=== PATIENT | female | born 1995 ===

== ENCOUNTER → 2023-03-03 | Outpatient (CLI) | payer MEDICAID | END | disposition home or self-care (01) | LOC: LAB 09:40 | PROVIDERS: ATTEND Obstetrics & Gynecology | DX: O99.810 Abnormal glucose complicating pregnancy (principal); Z3A.00 Weeks of gestation of pregnancy not specified | CPT/HCPCS: 36415; 82951; 83036 ==

== ENCOUNTER 2023-04-20 14:03 | Inpatient (IN) | payer MEDICAID ==
[~2023-04-20] VITALS: Ht 162.6 cm; Wt 82.1 kg
[2023-04-20] MEDS ORDERED: DERMOPLAST 60ML BOTTLE TOP PRN (16:00)
[2023-04-20] MEDS ORDERED: PHISODERM TOP SOLN 240ML BTL TOP PRN (16:00)
[2023-04-20] MEDS ORDERED: PROMETHAZINE HCL 25 MG/ML 1ML IV PRN (16:00)
[2023-04-20] MEDS ORDERED: LIDOCAINE 2%HCL (LOCAL ANESTH.) INJ 20ML MDV IJ PRN (16:00)
[2023-04-20] MEDS ORDERED: WITCH HAZEL-GLYCERIN PAD TOP PRN (16:00)
[2023-04-20 16:34] LABS: Basophils # (auto) 0 10 ^3/uL (0-0.2); Basophils % (auto) 0.3 % (0.0-2.0); Eosinophils # (auto) 0 10 ^3/uL (0-0.8); Hematocrit 36.9 % (36.0-46.0); Hemoglobin 12.5 g/dL (12.2-16.2); Lymphocytes # (auto) 1.4 10 ^3/uL (0.4-5.4); Mean Corpuscular Hemoglobin 31.2 pg (28.0-32.0); Mean Corpuscular Hgb Conc. 33.9 g/dL (32.0-36.0); Mean Corpuscular Volume 92.1 fL (80.0-100.0); Monocytes # (auto) 0.5 10 ^3/uL (0-1.3); Monocytes % (auto) 5.6 % (0.0-12.0); Neutrophils # (auto) 7.5 10 ^3/uL (1.6-8.6); Neutrophils % (auto) 79.1 % (37.0-80.0); Red Cell Distribution Width 13.4 % (11.8-14.3); White Blood Cell 9.5 10^3/uL (4.4-10.8)
[2023-04-20] MEDS ORDERED: NALOXONE HCL 0.4 MG/ML VIAL IV ONE (16:45)
[2023-04-20] MEDS ORDERED: ROPIVACAINE HCL 200 ML EPI SCH (16:45)
[2023-04-20] MEDS ORDERED: LIDOCAINE HCL 2 %PF INJ 10ML AMP IJ ONE (16:45)
[2023-04-20] MEDS ORDERED: ePHEDrine SULFATE 50 MG/ML AMP IV ONE (16:45)
[2023-04-20] MEDS ORDERED: fentaNYL CITRATE 100 MCG/2 ML VL IV ONE (16:45)
[2023-04-20 16:46] LABS: Urine Bacteria NONE SEEN /hpf (None Seen); Urine Blood 2+ /uL (Negative); Urine Clarity Clear (Clear); Urine Color Yellow (Yellow); Urine Mucus FEW (None Seen); Urine Protein, UAD TRACE (Negative); Urine Specific Gravity 1.028 (1.001-1.035); Urine Urobilinogen Normal (Negative); Urine WBC 11 /hpf (0 - 5)
[2023-04-20 16:55] LABS: INR 0.93 (0.9-1.15); Partial Thromboplastin Time 31.5 SEC (24.5-34.5); Prothrombin Time 9.8 sec (9.3-11.8)
[2023-04-20] MEDS ORDERED: LACT. RINGERS/OXYTOCIN 20UNITS 1,000 ML IV SCH (17:00)
[2023-04-20] MEDS ORDERED: LACT. RINGERS/OXYTOCIN 20UNITS 500 ML IV ONE ×2 (17:00→17:30)
[2023-04-20] MEDS ORDERED: TERBUTALINE SULFATE 1 MG/ML 1ML VIAL SC PRN (17:00)
[2023-04-20 17:05] LABS: Albumin 4.1 g/dL (3.2-4.8); Alkaline Phosphatase 140 U/L (46-116); Anion Gap 7 (5-15); Aspartate Aminotransferase < 8 U/L (13-40); Calcium 8.8 mg/dL (8.7-10.4); Carbon Dioxide 22 mmol/L (20-30); Chloride 106 mmol/L (98-107); Glucose 90 mg/dL (74-106); Potassium 3.5 mmol/L (3.5-5.1); Sodium 135 mmol/L (136-145)
[2023-04-20 17:06] LABS: Bilirubin, Total 0.4 mg/dL (0.2-1.0)
[2023-04-20 17:14] LABS: Alanine Aminotransferase < 9 U/L (7-40); BUN/Creatinine Ratio 8.6 (10.0-20.0); Blood Urea Nitrogen < 5 mg/dL (9-23)
[2023-04-20 17:15] LABS: Amphetamine Screen, Urine Neg (NEGATIVE); Barbiturate Scree,Urine Neg (NEGATIVE); Benzodiazephine Screen, Urine Neg (NEGATIVE); Cocaine Screen, Urine Neg (NEGATIVE)
[2023-04-20] MEDS: LACTATED RINGER'S 1,000 ML IV SCH ×2 (17:15→19:19)
[2023-04-20 17:16] LABS: Cannabinoid Screen, Urine Neg (NEGATIVE); Opiate Scree,Urine Neg (NEGATIVE); Phencyclidine Screen, Urine Neg (NEGATIVE)
[2023-04-20] MEDS ORDERED: FAMOTIDINE (10MG/ML) 2ML VL IV PRN (17:45)
[2023-04-20] MEDS ORDERED: METHYLERGONOVINE MALEATE 0.2 MG/ML AMP IM ONE (21:29)
[2023-04-20] MEDS ORDERED: METHYLERGONOVINE MALEATE 0.2 MG/ML AMP IM PRN (22:00)
[2023-04-21] MEDS ORDERED: IBUPROFEN 600 MG TAB PO PRN (01:00)
[2023-04-21] MEDS ORDERED: ONDANSETRON ODT 4 MG TAB PO PRN (01:00)
[2023-04-21] MEDS ORDERED: ACETAMINOPHEN 325 MG TAB PO PRN (01:00)
[2023-04-21 02:57] VITALS: BP 100/55; PULSE 65; RESP 16; TEMP 97.8
[2023-04-21 06:07] LABS: RPR Non Reactive (Non Reactive)
[2023-04-21 07:00] VITALS: BP 96/57; PULSE 61; RESP 16; RESP 18; TEMP 97.5
[2023-04-21 11:02] VITALS: BP 102/61; PULSE 75; RESP 16; TEMP 98; O2SAT 98
[2023-04-21 15:00] VITALS: TEMP 98.4
[2023-04-21 18:47] VITALS: BP 110/67; PULSE 66; RESP 18; TEMP 98.1; O2SAT 98
[2023-04-21] MEDS ORDERED: MEASLES, MUMPS & RUBELLA VAC(MMRII) 0.5ML SC ONE (19:15)
[2023-04-21 20:13] LABS: Basophils # (auto) 0 10 ^3/uL (0-0.2); Basophils % (auto) 0.5 % (0.0-2.0); Eosinophils # (auto) 0 10 ^3/uL (0-0.8); Eosinophils % (auto) 0.4 % (0.0-7.0); Hematocrit 38.9 % (36.0-46.0); Hemoglobin 13.1 g/dL (12.2-16.2); Lymphocytes # (auto) 2.2 10 ^3/uL (0.4-5.4); Mean Corpuscular Hemoglobin 31.4 pg (28.0-32.0); Mean Corpuscular Hgb Conc. 33.7 g/dL (32.0-36.0); Mean Corpuscular Volume 93.1 fL (80.0-100.0); Monocytes # (auto) 0.4 10 ^3/uL (0-1.3); Monocytes % (auto) 4.6 % (0.0-12.0); Neutrophils # (auto) 6.8 10 ^3/uL (1.6-8.6); Neutrophils % (auto) 71.5 % (37.0-80.0); Red Blood Cells 4.18 10^6/uL (4.0-5.20); Red Cell Distribution Width 13.5 % (11.8-14.3); White Blood Cell 9.5 10^3/uL (4.4-10.8)
[2023-04-21] MEDS ORDERED: DOCUSATE SOD 100 MG CAP PO SCH (22:00)
[2023-04-21] MEDS ORDERED: DOCU-265 PO (22:01)
[2023-04-21] MEDS ORDERED: IBU600T PO (22:01)
[2023-04-21 22:14] LABS: Urine Bacteria NONE SEEN /hpf (None Seen); Urine Blood 3+ /uL (Negative); Urine Clarity HAZY (Clear); Urine Color Colorless (Yellow); Urine Protein, UAD TRACE (Negative); Urine Specific Gravity 1.009 (1.001-1.035); Urine Urobilinogen Normal (Negative); Urine WBC 30 /hpf (0 - 5)
[2023-04-21 23:06] VITALS: BP 110/62; PULSE 67; RESP 18; TEMP 97.9; O2SAT 97
[2023-04-22] MEDS ORDERED: NITR-87 PO (00:59)
[2023-04-22 03:03] VITALS: BP 109/70; PULSE 73; RESP 18; TEMP 98.6; O2SAT 96
[2023-04-22] MEDS ORDERED: MEASLES, MUMPS & RUBELLA VAC(MMRII) 0.5ML SC ONE (06:00)
[2023-04-22 07:00] VITALS: PULSE 63; RESP 16
[2023-04-22 07:02] VITALS: BP 104/58; PULSE 63; RESP 18; TEMP 98.1; O2SAT 98
[2023-04-22 11:15] VITALS: BP 108/69; PULSE 71; RESP 16; TEMP 98.3; O2SAT 98
[2023-04-22 20:06] LABS: Treponema pallidum Ab (FTA-Ab) Non Reactive (Non Reactive)
== END 2023-04-22 13:46 | disposition home or self-care (01) | DRG 560 ==
LOC: LDRP 14:03 → UNDOADMOB 14:03 → LDRP 14:12 → OBSVTOIN 16:01 → LDRP 23:04
PROVIDERS: ADMIT Obstetrics & Gynecology; ATTEND Obstetrics & Gynecology
PROC: 10E0XZZ Delivery of Products of Conception, External Approach (ICD-10-PCS; principal; 2023-04-20)
PROC: 3E0R3BZ Introduction of Anesthetic Agent into Spinal Canal, Percutaneous Approach (ICD-10-PCS; 2023-04-20)
PROC: 00HU33Z Insertion of Infusion Device into Spinal Canal, Percutaneous Approach (ICD-10-PCS; 2023-04-20)
PROC: 3E0234Z Introduction of Serum, Toxoid and Vaccine into Muscle, Percutaneous Approach (ICD-10-PCS; 2023-04-22)
DX: O69.81X0 Labor and delivery complicated by cord around neck, without compression, not applicable or unspecified (principal); Z37.0 Single live birth; O23.43 Unspecified infection of urinary tract in pregnancy, third trimester; Z23 Encounter for immunization; Z3A.38 38 weeks gestation of pregnancy; Z88.0 Allergy status to penicillin; N39.0 Urinary tract infection, site not specified
CPT/HCPCS: 36415; 59025; 59409; 62282; 80053; 80307; 81001; 81002; 85025; 85610; 85730; 86592; 86850; 86900; 86901; 94760; 96360; 96361; 96365; 96366; 96372; G0378; J2590; J3490